=== PATIENT | female | born 1995 | race Hispanic/Latino ===

== ENCOUNTER 2019-10-03 17:43 | Inpatient (IN) | payer OTHER ==
[~2019-10-03] VITALS: Ht 157.5 cm; Wt 65.8 kg
[2019-10-03 18:27] LABS: APPEARANCE,URINE Clear (CLEAR); BILIRUBIN,URINE Negative (NEGATIVE); COLOR,URINE Yellow (YELLOW); GLUCOSE, URINE (UA) Negative (NEGATIVE); KETONES,URINE Negative (NEGATIVE); LEUKOCYTE ESTERASE ,URINE Negative (NEGATIVE); NITRATE,URINE Negative (NEGATIVE); OCCULT BLOOD,URINE Large (NEGATIVE); PH,URINE 7.5 (5.0-8.0); PROTEIN,URINE Negative (NEGATIVE)
[2019-10-03 18:32] LABS: BASOPHILS % (AUTO) 0.3 % (0.0-5.0); HEMATOCRIT 34.2 % (36-48); LYMPHOCYTES % (AUTO) 35.5 % (21.0-51.0); MEAN CORPUSCULAR HEMOGLOBIN 27.3 pg (27.0-33.0); MEAN CORPUSCULAR HGB CONC 32.7 g/dL (32.0-36.0); MEAN CORPUSCULAR VOLUME 83.4 fL (79-99); PLATELET COUNT (AUTO) 278 K/uL (130-400); RED CELL DISTRIBUTION WIDTH 13.5 % (11.0-15.5); WHITE BLOOD COUNT (AUTO) 6.1 K/uL (4.8-10.8)
[2019-10-03] MEDS ORDERED: KETOROLAC TROMETHAMINE 30MG/ML ONE (18:32)
[2019-10-03] MEDS ORDERED: SODIUM CHLORIDE 0.9% 1000ML 1,000 ML IV ONE (18:32)
[2019-10-03 18:35] LABS: BACTERIA,URINE Few /HPF (None Seen); WBC,URINE 0-1 /HPF (0-1)
[2019-10-03 18:36] LABS: MUCUS,URINE Few LPF (None Seen); SQUAMOUS EPITHELIAL CELL,UR Few /HPF (0-2)
[2019-10-03 18:46] LABS: CREATININE 0.8 mg/dL (0.5-1.5); POTASSIUM 3.6 mmol/L (3.5-5.1)
[2019-10-03 18:57] LABS: ALBUMIN 3.5 g/dL (3.5-5.0); BILIRUBIN,TOTAL 0.2 mg/dL (0.2-1.0); TOTAL PROTEIN, SERUM 7.5 g/dL (6.0-8.3)
[2019-10-03] MEDS ORDERED: IOHEXOL-350 75 ML VIAL IV ONE (19:21)
[2019-10-03] MEDS ORDERED: DEXTROSE 5%-LACTATED RINGERS 1,000 ML IV ONE (23:22)
[2019-10-04 00:05] VITALS: BP 119/65
[2019-10-04] MEDS ORDERED: MEPERIDINE-PF 25 MG/ML SYG IM PRN (00:15)
[2019-10-04] MEDS ORDERED: PROMETHAZINE HCL 25 MG/ML 1ML AMPULE IM PRN (00:15)
[2019-10-04] MEDS ORDERED: DEXTROSE 5%-LACTATED RINGERS 1,000 ML IV SCH (00:45)
[2019-10-04 03:37] VITALS: BP 116/68
[2019-10-04 07:19] VITALS: BP 105/36
--- NOTE | 2019-10-04 08:20 | NUR ---
PATIENT ASSESSED AND PIV INFUSING AT125 WITH D5 LR TO LEFT ANTECUBITAL SITE WITH 20G. SITE IS WNL AND PATIENT STATES HAVING SOME MILD PAIN BUT NOT NEEDING PAIN MEDICATION AT THIS TIME. PATIENT IS NPO BUT IS STABLE AT THIS TIME.
--- NOTE | 2019-10-04 10:00 | NUR ---
Initial Spoke w pt this am to discuss dcp. Pt mentions that prior to admission she was living w her spouse and 2 girls. She is independent w ambulation and aDLs. Pt does not own any DME or services. Per pt she feels safe and comfortable to return home at [place]. CM to continue to follow and wait for Md recommendations. Addendum: 10/04/19 at 1737 by SABAS LEDESMA Amended: Links added.
[2019-10-04 10:54] VITALS: BP 97/52
--- NOTE | 2019-10-04 12:00 | NUR ---
DR. ALEGRIA ROUNDED AND DISCHARGED PATIENT TO HOME AFTER EVALUATING PATIENT AND ORDERED ADDITIONAL LABS PRIOR TO DISCHARGE. PATIENT INDICATED PAIN NOT BEING TOO BAD AND WAS DISCHARGED ON MOTRIN 800MGS. A CA-125 AND CEA WAS ORDER IN ADDITION TO HER PREVIOUSLY ORDERED LABS AND LAB WAS CALLED TO ADD LABS. PATIENT INDICATED BEING OKAY WITH DISCHARGE SINCE PAIN WAS MUCH LESS.
--- NOTE | 2019-10-04 14:30 | NUR ---
DISCHARGE INSTRUCTIONS GIVEN TO PATIENT AND SCRIPT FOR MOTRIN AND WAS INSTRUCTED ON DOSAGE AND FREQUENCY. VERBALIZED UNDERSTANDING INSTRUCTIONS GIVEN AND IV REMOVED TO LAC WITH 20G AND SITE WNL.
--- NOTE | 2019-10-04 14:45 | NUR ---
PATIENT WAS TAKEN VIA W/C TO FAMILY VEHICLE IN STABLE CONDITION. PATIENT DENIES PAIN AND VITAL SIGNS HAVE BEEN WNL.
== END 2019-10-04 14:45 | disposition home or self-care (01) | DRG 694 ==
LOC: EDH 17:43 → EDHIP 17:44 → WSH 23:51
PROVIDERS: ADMIT Obstetrics & Gynecology; ATTEND Obstetrics & Gynecology
DX: N13.30 Unspecified hydronephrosis (principal); N13.4 Hydroureter
CPT/HCPCS: 36415; 74176; 76856; 80053; 81001; 82378; 84702; 85025; 86304; G0378; J1885; J3490; J7030; Q9967

== ENCOUNTER 2019-10-17 21:59 | Inpatient (IN) | payer SELFPAY ==
[~2019-10-17] VITALS: Ht 157.5 cm; Wt 64.0 kg
[2019-10-17] MEDS ORDERED: KETOROLAC TROMETHAMINE 30MG/ML ONE (22:30)
[2019-10-17 22:34] LABS: BASOPHILS % (AUTO) 0.5 % (0.0-5.0); EOSINOPHILS % (AUTO) 0.8 % (0.0-8.0); HEMATOCRIT 39.9 % (36-48); LYMPHOCYTES % (AUTO) 31.8 % (21.0-51.0); MEAN CORPUSCULAR HEMOGLOBIN 27.8 pg (27.0-33.0); MEAN CORPUSCULAR HGB CONC 33.8 g/dL (32.0-36.0); MEAN CORPUSCULAR VOLUME 82.1 fL (79-99); NEUTROPHILS % (AUTO) 61.7 % (40.0-77.0); PLATELET COUNT (AUTO) 348 K/uL (130-400); RED BLOOD CELL COUNT(AUTO) 4.86 MIL/uL (4.00-5.50); RED CELL DISTRIBUTION WIDTH 13.5 % (11.0-15.5); WHITE BLOOD COUNT (AUTO) 8.3 K/uL (4.8-10.8)
[2019-10-17] MEDS ORDERED: METOCLOPRAMIDE 10 MG/2 ML VIAL ONE (22:37)
[2019-10-17] MEDS ORDERED: ONDANSETRON HCL 4 MG/2 ML VIAL ONE (22:37)
[2019-10-17 22:49] LABS: INR 1.02 (0.85-1.15); PARTIAL THROMBOPLASTIN TIME 26.6 SEC (26.3-35.5)
[2019-10-17 22:51] LABS: ALBUMIN 4.2 g/dL (3.5-5.0); BILIRUBIN,TOTAL 0.2 mg/dL (0.2-1.0); CREATININE 0.8 mg/dL (0.5-1.5); TOTAL PROTEIN, SERUM 8.5 g/dL (6.0-8.3)
[2019-10-17 22:58] LABS: POTASSIUM 2.9 mmol/L (3.5-5.1)
[2019-10-17 23:09] LABS: BILIRUBIN,URINE Negative (NEGATIVE); COLOR,URINE Yellow (YELLOW); GLUCOSE, URINE (UA) Negative (NEGATIVE); KETONES,URINE Negative (NEGATIVE); LEUKOCYTE ESTERASE ,URINE Negative (NEGATIVE); NITRATE,URINE Negative (NEGATIVE); OCCULT BLOOD,URINE Moderate (NEGATIVE); PROTEIN,URINE Negative (NEGATIVE)
[2019-10-17 23:11] LABS: APPEARANCE,URINE CLOUDY (CLEAR)
[2019-10-17] MEDS ORDERED: MORPHINE SULFATE 2 MG/ML 1ML SYG ONE (23:18)
[2019-10-17 23:24] LABS: AMORPHOUS SEDIMENT,UR Many /LPF (None Seen); BACTERIA,URINE Rare /HPF (None Seen); MUCUS,URINE Moderate LPF (None Seen); SQUAMOUS EPITHELIAL CELL,UR Few /HPF (0-2)
[2019-10-18] MEDS ORDERED: IOHEXOL-350 75 ML VIAL IV ONE (00:07)
[2019-10-18] MEDS ORDERED: ONDANSETRON HCL 4 MG/2 ML VIAL IV PRN (02:00)
[2019-10-18] MEDS: LACTATED RINGERS 1000ML 1,000 ML IV SCH ×4 (02:00→20:06)
[2019-10-18] MEDS ORDERED: POTASSIUM CHLORIDE 20MEQ/100ML 100 ML IV PRN ×2 (02:15→10:30)
[2019-10-18] MEDS ORDERED: LIDOCAINE HCL-MPF 1% 2ML VIAL IV PRN ×2 (02:15→10:30)
[2019-10-18] MEDS ORDERED: ZOSYN 3.375GM+NS 50ML 50 ML IV ONE (02:29)
[2019-10-18] MEDS ORDERED: LACTATED RINGERS 1000ML 1,000 ML IV ONE (02:45)
[2019-10-18] MEDS ORDERED: METRONIDAZOLE 500MG/100ML BAG 100 ML ONE (03:22)
[2019-10-18] MEDS ORDERED: MORPHINE SULFATE 2 MG/ML 1ML SYG ONE (04:11)
[2019-10-18] MEDS ORDERED: METRONIDAZOLE 500MG/100ML BAG 100 ML IV SCH (06:00)
[2019-10-18] MEDS ORDERED: POTASSIUM CHLORIDE 20MEQ/100ML 100 ML IV ONE (06:14)
[2019-10-18] MEDS ORDERED: LIDOCAINE HCL-MPF 1% 2ML VIAL ONE (06:14)
[2019-10-18 06:17] LABS: BASOPHILS % (AUTO) 0.2 % (0.0-5.0); EOSINOPHILS % (AUTO) 0.2 % (0.0-8.0); HEMATOCRIT 34.3 % (36-48); MEAN CORPUSCULAR HEMOGLOBIN 27.4 pg (27.0-33.0); MEAN CORPUSCULAR HGB CONC 32.9 g/dL (32.0-36.0); MEAN CORPUSCULAR VOLUME 83.1 fL (79-99); MONOCYTES % (AUTO) 5.5 % (3.0-13.0); NEUTROPHILS % (AUTO) 84.6 % (40.0-77.0); PLATELET COUNT (AUTO) 277 K/uL (130-400); RED BLOOD CELL COUNT(AUTO) 4.13 MIL/uL (4.00-5.50); RED CELL DISTRIBUTION WIDTH 13.7 % (11.0-15.5); WHITE BLOOD COUNT (AUTO) 12.8 K/uL (4.8-10.8)
[2019-10-18 06:32] LABS: ALANINE AMINOTRANSFERASE 18 U/L (12-78); ALBUMIN 3.1 g/dL (3.5-5.0); ASPARTATE AMINOTRANSFERASE 10 U/L (10-37); BILIRUBIN,TOTAL 0.4 mg/dL (0.2-1.0); CARBON DIOXIDE 24 mmol/L (21-32); CHLORIDE 105 mmol/L (101-111); CREATININE 0.7 mg/dL (0.5-1.5); GLOMERULAR FILTR. RATE CALC 108 mL/min (>60); GLUCOSE,RANDOM 118 mg/dL (70-105); POTASSIUM 3.6 mmol/L (3.5-5.1); SODIUM SERUM 139 mmol/L (136-145); TOTAL PROTEIN, SERUM 6.5 g/dL (6.0-8.3); UREA NITROGEN, BLOOD 8 mg/dL (7-18)
[2019-10-18] MEDS: FAMOTIDINE/PF 20 MG/2 ML VIAL IV SCH ×2 (08:34→20:06)
[2019-10-18 08:35] VITALS: BP 117/61
[2019-10-18] MEDS: MORPHINE SULFATE 2 MG/ML 1ML SYG IV PRN ×4 (08:37→21:14)
--- NOTE | 2019-10-18 10:22 | NUR ---
DR FITZPATRICK CONSULTED , ON UNIT TO SEE PATIENT ORDERERS RECEIVED FOR ZOSYN Q6 HOURS AND CBC WITH DIFF IN AM ORDERS PLACED.
[2019-10-18] MEDS ORDERED: POTASSIUM CHLORIDE 10% ELIXIR 20 MEQ/15 ML UDCUP PO PRN (10:30)
[2019-10-18] MEDS: ZOSYN 3.375GM+NS 50ML 50 ML IV SCH ×2 (12:51→18:08)
[2019-10-18] MEDS: METRONIDAZOLE 500MG/100ML BAG 100 ML IV SCH ×3 (12:56→20:07)
[2019-10-18 13:08] VITALS: BP 111/68
--- NOTE | 2019-10-18 13:19 | NUR ---
cm note met with patient and states resides at home with spouse and with 2 daughters, independent with ambulation and adls. dc [place], normally works but currently on [facility]. Addendum: 10/18/19 at 1326 by JACKY MCDONNELL CM Amended: Links added.
[2019-10-18 16:48] VITALS: BP 113/65
[2019-10-18] MEDS ORDERED: PSYLLIUM SEED 1 EACH PACKET PO PRN (17:45)
[2019-10-18] MEDS: HYDROCODONE/ACETAMINOPHEN 5/325 MG TAB PO PRN (20:07)
[2019-10-18 20:19] VITALS: BP 127/72
[2019-10-18 23:38] VITALS: BP 122/68
[2019-10-19] MEDS: ZOSYN 3.375GM+NS 50ML 50 ML IV SCH ×4 (01:12→18:16)
[2019-10-19] MEDS: MORPHINE SULFATE 2 MG/ML 1ML SYG IV PRN (01:35)
[2019-10-19] MEDS ORDERED: KETOROLAC TROMETHAMINE 15MG/ML IV PRN (01:45)
[2019-10-19 03:31] VITALS: BP 148/80
[2019-10-19] MEDS: METRONIDAZOLE 500MG/100ML BAG 100 ML IV SCH (05:00)
[2019-10-19 05:27] LABS: BASOPHILS % (AUTO) 0.3 % (0.0-5.0); EOSINOPHILS % (AUTO) 0.3 % (0.0-8.0); HEMATOCRIT 29.9 % (36-48); LYMPHOCYTES % (AUTO) 10.8 % (21.0-51.0); MEAN CORPUSCULAR HEMOGLOBIN 27.4 pg (27.0-33.0); MEAN CORPUSCULAR HGB CONC 32.8 g/dL (32.0-36.0); MEAN CORPUSCULAR VOLUME 83.5 fL (79-99); MONOCYTES % (AUTO) 4.4 % (3.0-13.0); NEUTROPHILS % (AUTO) 83.8 % (40.0-77.0); PLATELET COUNT (AUTO) 243 K/uL (130-400); RED BLOOD CELL COUNT(AUTO) 3.58 MIL/uL (4.00-5.50); WHITE BLOOD COUNT (AUTO) 11.5 K/uL (4.8-10.8)
[2019-10-19] MEDS ORDERED: ACETAMINOPHEN 325 MG TAB PO PRN (05:30)
[2019-10-19 05:49] LABS: ALBUMIN 2.7 g/dL (3.5-5.0); BILIRUBIN,TOTAL 0.8 mg/dL (0.2-1.0); CREATININE 0.8 mg/dL (0.5-1.5); POTASSIUM 3.1 mmol/L (3.5-5.1); TOTAL PROTEIN, SERUM 6.1 g/dL (6.0-8.3)
[2019-10-19] MEDS: POTASSIUM CHLORIDE 20 MEQ ERTAB PO PRN ×3 (06:28→11:13)
[2019-10-19 07:30] VITALS: BP 108/57
[2019-10-19] MEDS: FAMOTIDINE/PF 20 MG/2 ML VIAL IV SCH ×2 (08:11→20:42)
--- NOTE | 2019-10-19 08:40 | NUR ---
[place] [facility] DR. FITZPATRICK IN TO SEE PATIENT. NEW ORDERS RECEIVED AND CARRIED OUT.
[2019-10-19] MEDS: LACTATED RINGERS 1000ML 1,000 ML IV SCH ×2 (08:50→18:16)
[2019-10-19 11:00] VITALS: BP 118/74
[2019-10-19] MEDS: HYDROCODONE/ACETAMINOPHEN 5/325 MG TAB PO PRN ×2 (11:16→20:47)
[2019-10-19 16:00] VITALS: BP 119/82
[2019-10-19 20:00] VITALS: BP 106/54
[2019-10-20] VITALS (27 sets, daily range): BP systolic 101–141; BP diastolic 55–90
[2019-10-20] MEDS: ZOSYN 3.375GM+NS 50ML 50 ML IV SCH ×4 (00:53→17:40)
[2019-10-20] MEDS: LACTATED RINGERS 1000ML 1,000 ML IV SCH ×3 (02:29→17:40)
[2019-10-20 06:24] LABS: BASOPHILS % (AUTO) 0.3 % (0.0-5.0); EOSINOPHILS % (AUTO) 3.1 % (0.0-8.0); HEMATOCRIT 29.2 % (36-48); LYMPHOCYTES % (AUTO) 33.7 % (21.0-51.0); MEAN CORPUSCULAR HEMOGLOBIN 27.6 pg (27.0-33.0); MEAN CORPUSCULAR HGB CONC 32.9 g/dL (32.0-36.0); MEAN CORPUSCULAR VOLUME 83.9 fL (79-99); NEUTROPHILS % (AUTO) 56.7 % (40.0-77.0); PLATELET COUNT (AUTO) 252 K/uL (130-400); RED BLOOD CELL COUNT(AUTO) 3.48 MIL/uL (4.00-5.50); RED CELL DISTRIBUTION WIDTH 14.2 % (11.0-15.5); WHITE BLOOD COUNT (AUTO) 6.6 K/uL (4.8-10.8)
[2019-10-20 06:32] LABS: POTASSIUM 3.2 mmol/L (3.5-5.1)
[2019-10-20 06:44] LABS: INR 1.15 (0.85-1.15); PROTHROMBIN TIME 12.4 SEC (9.6-11.6)
[2019-10-20 06:56] LABS: CREATININE 0.7 mg/dL (0.5-1.5)
[2019-10-20] MEDS ORDERED: MAGNESIUM 2GM PREMIX 50ML 50 ML IV ONE (07:14)
[2019-10-20] MEDS ORDERED: MAGNESIUM 2GM PREMIX 50ML 50 ML IV PRN (07:15)
[2019-10-20] MEDS ORDERED: ROCURONIUM 10MG/1ML SYR 10 MG/ML ML ONE (08:05)
[2019-10-20] MEDS ORDERED: MIDAZOLAM HCL 1 MG/ML 2ML VIAL ONE (08:05)
[2019-10-20] MEDS ORDERED: LIDOCAINE PF 2% 5ML ABBOJECT ONE ×2 (08:05→09:39)
[2019-10-20] MEDS ORDERED: SUCCINYLCHOLINE CHLORIDE 20 MG/ML 10 ML VIAL ONE (08:05)
[2019-10-20] MEDS ORDERED: PROPOFOL 10 MG/ML 20ML VIAL IV ONE (08:05)
[2019-10-20] MEDS ORDERED: FENTANYL CITRATE PF 50 MCG/1 ML 2ML VIAL ONE (08:06)
[2019-10-20] MEDS ORDERED: GLYCOPYRROLATE 1 MG/5 ML SYRINGE ONE (09:32)
[2019-10-20] MEDS ORDERED: NEOSTIGMINE 5MG/5ML SYR IV ONE (09:32)
[2019-10-20] MEDS ORDERED: ONDANSETRON HCL 4 MG/2 ML VIAL ONE (09:34)
[2019-10-20] MEDS ORDERED: MEPERIDINE-PF 25 MG/ML SYG ONE ×3 (09:35→10:16)
[2019-10-20] MEDS: FAMOTIDINE/PF 20 MG/2 ML VIAL IV SCH ×2 (11:25→21:21)
[2019-10-20] MEDS: HYDROCODONE/ACETAMINOPHEN 5/325 MG TAB PO PRN (11:53)
[2019-10-20] MEDS ORDERED: LACTULOSE 20 GM/30 ML UDCUP PO PRN (13:45)
[2019-10-20] MEDS: MORPHINE SULFATE 2 MG/ML 1ML SYG IV PRN (14:10)
[2019-10-20] MEDS: PROMETHAZINE HCL 25 MG/ML 1ML AMPULE IM PRN (16:51)
[2019-10-20] MEDS: MEPERIDINE-PF 100 MG/ML SYG IM PRN (16:52)
[2019-10-20] MEDS: POTASSIUM CHLORIDE 20 MEQ ERTAB PO PRN ×2 (17:41→21:21)
--- NOTE | 2019-10-20 19:10 | NUR ---
Report received from Samara Deng RN; Patient awake but sleepy with IV of LR at 125 ml/hour, Riggs Catheter flowing clear yellow urine patent, NEMO drain on her left side of abdomen with serous sanguinous drainage., Dressing dry and intact on her incision. Plan of care discussed with patient verbalizes understanding.
[2019-10-21] MEDS: ZOSYN 3.375GM+NS 50ML 50 ML IV SCH ×5 (00:10→23:50)
[2019-10-21] MEDS: MORPHINE SULFATE 2 MG/ML 1ML SYG IV PRN ×2 (00:24→04:00)
[2019-10-21] MEDS: LACTATED RINGERS 1000ML 1,000 ML IV SCH (02:10)
[2019-10-21 04:05] VITALS: BP 135/88
[2019-10-21] MEDS: PROMETHAZINE HCL 25 MG/ML 1ML AMPULE IM PRN (06:51)
[2019-10-21] MEDS: MEPERIDINE-PF 100 MG/ML SYG IM PRN (06:51)
[2019-10-21 06:54] LABS: BASOPHILS % (AUTO) 0.3 % (0.0-5.0); EOSINOPHILS % (AUTO) 2.5 % (0.0-8.0); HEMATOCRIT 30.6 % (36-48); LYMPHOCYTES % (AUTO) 26.3 % (21.0-51.0); MEAN CORPUSCULAR HEMOGLOBIN 27.2 pg (27.0-33.0); MEAN CORPUSCULAR HGB CONC 32.4 g/dL (32.0-36.0); MEAN CORPUSCULAR VOLUME 84.1 fL (79-99); MONOCYTES % (AUTO) 7.1 % (3.0-13.0); NEUTROPHILS % (AUTO) 63.5 % (40.0-77.0); PLATELET COUNT (AUTO) 272 K/uL (130-400); RED BLOOD CELL COUNT(AUTO) 3.64 MIL/uL (4.00-5.50); WHITE BLOOD COUNT (AUTO) 6.9 K/uL (4.8-10.8)
[2019-10-21 07:07] LABS: CREATININE 0.6 mg/dL (0.5-1.5); MAGNESIUM 1.8 mg/dL (1.80-2.40)
[2019-10-21 07:41] VITALS: BP 114/63
[2019-10-21] MEDS ORDERED: ACETAMINOPHEN-CODEINE 300/30MG TAB PO PRN (08:00)
[2019-10-21] MEDS ORDERED: HYDROCODONE/ACETAMINOPHEN 5/325 MG TAB PO PRN (08:00)
[2019-10-21] MEDS ORDERED: SODIUM CHLORIDE 0.9% 10 ML VIAL IVP PRN (08:00)
--- NOTE | 2019-10-21 08:50 | NUR ---
gallagher catheter removed, tip intact, incisional dressing removed, incision is dry and intact with fredy, applied abdominal binders, assisted to bedside chair, pt tolerated well Addendum: 10/21/19 at 1425 by TAJ PAIZ RN Amended: Links added.
[2019-10-21] MEDS: FAMOTIDINE/PF 20 MG/2 ML VIAL IV SCH ×2 (09:10→21:10)
[2019-10-21] MEDS: IBUPROFEN 800 MG TAB PO PRN ×3 (09:11→23:51)
[2019-10-21 11:45] VITALS: BP 120/68
--- NOTE | 2019-10-21 14:12 | NUR ---
report given to Marcela Joyner LVN, for continuation of care Addendum: 10/21/19 at 1419 by TAJ PAIZ RN Amended: Links added.
--- NOTE | 2019-10-21 16:30 | NUR ---
DR. GUDINO ROUNDING ON PATIENT. INCISION WAS ASSESSED. QUESTIONS INVITED AND ANSWERED. DR. GUDINO STATES PATIENT IS CLEAR FROM HIS STANDPOINT IF OBGYN CLEARS PATIENT.
[2019-10-21 17:26] VITALS: BP 124/80
[2019-10-21 20:14] VITALS: BP 114/68
[2019-10-21 23:45] VITALS: BP 112/66
[2019-10-22 03:45] VITALS: BP 117/74
[2019-10-22] MEDS: ZOSYN 3.375GM+NS 50ML 50 ML IV SCH (05:36)
[2019-10-22 07:37] VITALS: BP 106/49
[2019-10-22] MEDS: FAMOTIDINE/PF 20 MG/2 ML VIAL IV SCH (08:15)
[2019-10-22] MEDS: IBUPROFEN 800 MG TAB PO PRN (08:15)
--- NOTE | 2019-10-22 09:45 | NUR ---
order received from Dr. Izaguirre for patient to be discharged and to call in Augmentin 875mg po bid x 10 days. order called to [facility].
--- NOTE | 2019-10-22 11:00 | NUR ---
discharge instructions given and script for tylenol #3 issued and instructed on dosage and frequency and Augmentin called to [facility] as per Dr. Izaguirre's orders.
[2019-10-22 11:19] VITALS: BP 111/57
--- NOTE | 2019-10-22 11:20 | NUR ---
pt is dismissed in stable condition, brought to private car via wheelchair by olga. [place] - pcp Addendum: 10/22/19 at 1128 by TAJ PAIZ RN Amended: Links added.
== END 2019-10-22 11:20 | disposition home or self-care (01) | DRG 742 ==
LOC: EDH 21:59 → EDHIP 22:00 → 3CH 10-18 07:18 → WSH 10-20 11:15
PROVIDERS: ADMIT Internal Medicine; ATTEND Internal Medicine
PROC: 0UB00ZZ Excision of Right Ovary, Open Approach (ICD-10-PCS; principal; 2019-10-20 08:34)
DX: N83.291 Other ovarian cyst, right side (principal); T81.61XA Aseptic peritonitis due to foreign substance accidentally left during a procedure, initial encounter; N73.5 Female pelvic peritonitis, unspecified; N73.9 Female pelvic inflammatory disease, unspecified; N80.1 Endometriosis of ovary; D72.829 Elevated white blood cell count, unspecified; E83.42 Hypomagnesemia; E87.6 Hypokalemia; N73.6 Female pelvic peritoneal adhesions (postinfective); Y92.89 Other specified places as the place of occurrence of the external cause; Z87.891 Personal history of nicotine dependence; Z90.721 Acquired absence of ovaries, unilateral
CPT/HCPCS: 36415; 74177; 76856; 80048; 80053; 81001; 81025; 82550; 83605; 83690; 83735; 84145; 85025; 85610; 85730; 86140; 86850; 86900; 86901; 87040; 87070; 87076; 87205; 87210; 87486; 87797; 88305; 88313; 88342; A4344; G0378; J0330; J1885; J2001; J2175; J2250; J2405; J2543; J2550; J2704; J2710; J2765; J3010; J3475; J3480; J3490; J7030; J7120; Q9967